=== PATIENT | male | born 1955 | race Caucasian/White ===

== ENCOUNTER 2016-08-16 09:04 | Outpatient (CLI) | payer BC ==
[~2016-08-16] VITALS: Ht 193 cm; Wt 119.1 kg
--- NOTE | ~2016-08-16 | HEMODYNAMI ---
PATIENT:SHERICE MO MEDICAL RECORD: [id number] : 57 LOCATION:D.CAT ADMISSION DATE: 08/16/16 Generatedon:08/16/201613:22 Patient name: SHERICE MO Patient #: [id number] SSN: DO B: 1955 Date of study: 08/16/2016 Page: Of Hemodynamic Procedure Report Patient Data Patient Demographics Procedure consent was obtained First Name: SHERICE Gender: Male Last Name: CHELY : 1955 [facility] Initial: ANNA Age: 60 year(s) Patient #: [id number] Race: Additional ID: [id number] Contact details Address: [facility] [address] State: [place] City: [place] Zip code: [address] Past Medical History Allergies: No known allergies Admission Admission Data Admission Date: 08/16/2016 Admission Time: 9:04 Lab Results Lab Result Date: 08/16/2016 Lab Result Time: 0:00 Biochemistry Name Units Result Min Max Creatinine mg/dl 0.9 --(-*--)-- 0.6 1.3 CBC Name Units Result Min Max Hemoglobin g/dl 13.9 --(*---)-- 13.5 17.5 Procedure Procedure Types Cath Procedure Diagnostic Procedure [facility] w/Coronaries Miscellaneous Procedures Moderate Sedation up to 15 minutes Procedure Description Procedure Date Procedure Date: 08/16/2016 Procedure Start Time: 13:11 Procedure End Time: 13:21 Procedure Staff Name Function James Thurman MD Performing Physician Ignacio Sullivan RT Scrub Thiago Carter RN Nurse Marlin Huggins RT Monitor Procedure Data Cath Procedure Fluoroscopy Diagnostic fluoroscopy Total fluoroscopy Time: 0.9 time: 0.9 min min Diagnostic fluoroscopy Total fluoroscopy dose: dose: 258.5 mGy 258.5 mGy Contrast Material Contrast Material Type Amount (ml) Isovue 300 63 Entry Location Entry Primary Successful Side Size Upsize Upsize Entry Closure Succes sful Closure Location (Fr) 1 (Fr) 2 (Fr) Remarks Device Remarks Femoral Right 5 Fr Exoseal artery Estimated blood loss: 5 ml Diagnostic catheters Device Type Used For End Catheter Placement Cordis 5Fr Pigtail LV Angiography Catheter (MP) Cordis 5Fr JL 4.0 Left Coronary Catheter (MP) Angiography Cordis 5Fr 3DRC Catheter Right Coronary (MP) Angiography Procedure Complications No complications Procedure Medications Medication Administration Route Dosage Oxygen NC 2 l/min Heparin Flush Bag added to field 2 bags (1000units/500ml NS) 0.9% NaCl I.V. 100 ml/hr Fentanyl I.V. 50 mcg Versed I.V. 1 mg Fentanyl I.V. 50 mcg Versed I.V. 1 mg Fentanyl I.V. 50 mcg Fentanyl I.V. 50 mcg Hemodynamics Rest HGB: 13.9 (g/dl) Heart Rate: 60 (bpm) Snapshots Pre Cath Intra NCS Post Cath Vital Signs Time Heart Resp SPO2 NIBP (mmHg) Rhythm Pain Sedation Rate (ipm) (%) Status Level (bpm) 12:44:56 60 19 99 130/77(112) NSR 0 (11) 10(A) , No pain 12:49:15 60 17 99 127/80(105) NSR 0 (11) 10(A) , No pain 12:53:33 60 18 97 122/74(101) NSR 0 (11) 10(A) , No pain 12:57:49 61 17 96 121/74(101) NSR 0 (11) 10(A) , No pain 13:02:05 62 18 98 120/76(99) NSR 0 (11) 10(A) , No pain 13:06:23 62 18 98 117/71(98) NSR 0 (11) 10(A) , No pain 13:10:39 63 19 95 119/74(104) NSR 0 (11) 9(A) , No pain 13:14:53 67 19 94 119/77(103) NSR 0 (11) 9(A) , No pain 13:18:22 69 19 96 117/69(96) NSR 0 (11) 9(A) , No pain Medications Time Medication Route Dose Verified Delivered Reason Notes Effec tiveness by by 12:44:36 Oxygen NC 2 Thiago Das used for l/min Raul Carter audience development manager RN 12:44:59 Heparin Flush added 2 Thiago Thiago used for Bag to bags Raul Carter RN procedure (1000units/500ml field RN NS) 12:45:14 0.9% NaCl I.V. 100 Thiago Kebedey Per ml/hr Raul Carter RN physician RN 13:05:55 Fentanyl I.V. 50 Thiago Thiago for [facility] [place] Raul Carter RN sedation RN 13:06:02 Versed I.V. 1 mg Thiago Thiago for Raul Carter RN sedation RN 13:09:15 Fentanyl I.V. 50 Thiago Thiago for [facility] [place] Raul Carter RN sedation RN 13:09:20 Versed I.V. 1 mg Thiago Thiago for Raul Carter RN sedation RN 13:12:59 Fentanyl I.V. 50 Thiago Thiago for [facility] [place] Raul Carter RN sedation RN 13:14:22 Fentanyl I.V. 50 Thiago Thiago for [facility] [place] Raul Carter RN sedation supercharge repair supervisor Log Time Note 12:16:52 Diagnostic Cath Status : Elective 12:17:17 Time tracking: Regular hours 12:17:21 Plan of Care:Hemodynamics will remain stable., Cardiac rhythm will remain stable., Comfort level will be maintained., Respiratory function will remain adequate., Patient/ family verbilizes understanding of procedure., Procedure tolerated without complication., Recovers from procedure without complications.. 12:25:52 Thiago Carter RN sent for patient. Start room use. 12:36:22 Patient received from Pre/Post Procedure Room to [facility] 3 Alert and oriented. Tansferred to table in Supine position. 12:36:23 Warm blankets applied, and flores hugger turned on for patient comfort. 12:36:23 Correct patient and procedure confirmed by team. 12:36:25 Signed procedure consent form obtained from patient. 12:36:26 ECG and BP/O2 sat monitors applied to patient. 12:43:49 Vital chart was started 12:43:52 Rhythm: sinus rhythm 12:43:55 Full Disclosure recording started 12:44:05 H&P Date Dictated: 08/14/2016 Within 30 days and on chart., H&P Addendum completed by physician on day of procedure. (MUST COMPLETE FOR ALL OUTPATIENTS). 12:44:06 Pre-procedure instructions explained to patient. 12:44:07 Pre-op teaching completed and patient verbalized understanding. 12:44:08 Family in waiting room. 12:44:10 Patient NPO since Midnight. 12:44:16 Patient allergic to No known allergies 12:44:18 Is the patient allergic to Iodine/contrast media? No. 12:44:20 Is patient on blood thinner?No 12:44:23 Patient diabetic? Yes. 12:44:36 Oxygen 2 l/min NC was given by Thiago Carter RN; used for procedure; 12:44:59 Heparin Flush Bag (1000units/500ml NS) 2 bags added to field was given by Thiago Carter RN; used for procedure; 12:45:14 0.9% NaCl 100 ml/hr I.V. was given by Thiago Carter RN; Per physician; 12:45:15 If diabetic: On Metformin? No 12:45:22 ACC The patient was administered the following blood thiners within the last 24 hours: ACCPlavix 12:45:26 Previous problem with sedation/anesthesia? No ? 12:45:27 Snore? Yes 12:45:29 Sleep apnea? No 12:45:30 Deviated septum? No 12:45:31 Opens mouth fully? Yes 12:45:31 Sticks out tongue? Yes 12:45:35 Airway obstruction? No ? 12:45:37 Dentures? No ? 12:45:39 Pre procedure: right dorsailis pedis pulse 2+ Normal; easily identifiable; not easily obliterated 12:45:42 Patient pain scale 0/10 ?. 12:45:47 IV patent on arrival in left hand with 0.9% NaCl at [facility]. 12:46:13 Lab Result : Creatinine 0.9 mg/dl 12:46:13 Lab Result : Hemoglobin 13.9 g/dl 12:46:18 Lab results completed and on chart. 12:46:21 Right groin area was prepped with chlora-prep and draped in sterile fashion 12:46:29 Alarms reviewed by R. N. 12:46:29 Sharps counted by scrub and verified by R.N. 12:50:55 Baseline sample Acquired. 12:58:08 Zero performed for pressure channel P1 12:58:12 Zero performed for pressure channel P1 13:03:02 Final Timeout: patient, procedure, and site verified with staff and physician. All members of the team are in agreement. 13:03:09 Right groin site verified by team. 13:03:13 Physical assessment completed. ASA score P 2 - A patient with mild systemic disease as per James Thurman MD. 13:03:16 Sedation plan: IV Moderate Sedation Versed, Fentanyl 13:05:55 Fentanyl 50 mcg I.V. was given by Thiago Carter RN; for sedation; 13:06:02 Versed 1 mg I.V. was given by Thiago Carter RN; for sedation; 13:06:08 Use device set Femoral Dx 13:06:09 Acist Syringe opened to sterile field. 13:06:11 Bag Decanter opened to sterile field. 13:06:11 Medline Cath Pack opened to sterile field. 13:06:12 Terumo 5Fr Stanley Sheath opened to sterile field. 13:06:12 St Jens 260cm J .035 wire opened to sterile field. 13:06:13 Acist Hand Control opened to sterile field. 13:06:14 Acist Manifold opened to sterile field. 13:06:14 Diagnostic Infinity 5Fr Multipack catheter opened to sterile field. 13:06:15 Tegaderm 4 x 4 opened to sterile field. 13:09:15 Fentanyl 50 mcg I.V. was given by Thiago Carter RN; for sedation; 13:09:20 Versed 1 mg I.V. was given by Thiago Carter RN; for sedation; 13:11:15 Procedure started. 13:11:18 Local anesthetic to right femoral artery with Lidocaine 2% by James Thurman MD.INITIAL ACCESS ONLY 13:11:54 A 5 Fr sheath was inserted into the Right Femoral artery 13:11:59 A Cordis 5Fr Pigtail Catheter (MP) was advanced over the wire and used for LV Angiography. 13:12:30 LV gram done using CORREA 13:12:34 EF : 50 % 13:12:39 Injector settings: Ml/sec: 10, Volume: 20, 13:12:40 Catheter removed. 13:12:45 A Cordis 5Fr JL 4.0 Catheter (MP) was advanced over the wire and used for Left Coronary Angiography. 13:12:59 Fentanyl 50 mcg I.V. was given by Thiago Carter RN; for sedation; 13:14:05 Catheter removed. 13:14:10 A Cordis 5Fr 3DRC Catheter (MP) was advanced over the wire and used for Right Coronary Angiography. 13:14:22 Fentanyl 50 mcg I.V. was given by Thiago Carter RN; for sedation; 13:14:46 Catheter removed. 13:14:58 Cordis 5Fr Exoseal opened to sterile field. 13:15:10 Sheath removed intact; hemostasis achieved with Exoseal to the Right Femoral artery. 13:15:12 Procedure ended.(Physican Out) 13:15:24 Fluoroscopy time 00.90 minutes. 13:15:31 Fluoroscopy dose: 258.5 mGy 13:15:31 Flurop Dose total: 258.5 13:15:36 Contrast amount:Isovue 300 63ml. 13:15:37 Sharps counted by scrub and verified by R.N. 13:15:38 Insertion/operative site no bleeding no hematoma. 13:15:41 Post-op/insertion site Right Femoral artery dressed using a 4 x 4 and Tegaderm. 13:15:44 Post right femoral artery:stable, clean and dry 13:15:57 Post Procedure Pulses reassessed and unchanged 13:16:00 Post-procedure physical assessment completed. ASA score P 2 - A patient with mild systemic disease as per James Thurman MD. 13:16:03 Post procedure rhythm: unchanged. 13:16:06 Estimated blood loss: 5 ml 13:16:07 Post procedure instruction explained to patient.Patient verbalizes understanding. 13:16:08 Patient needs reinforcement of post procedure teaching. 13:16:14 Procedure type changed to Cath procedure, Diagnostic procedure, LHC, LHC w/Coronaries, Miscellaneous Procedures, Moderate Sedation up to 15 minutes 13:16:19 Procedure Complication : No complications 13:16:21 See physician's report for complete and final results. 13:16:50 Procedure and supply charges have been captured, reviewed, submitted and are correct. 13:21:33 Vital chart was stopped 13:21:35 Report given to Pre/Post Procedure Room. 13:21:38 Patient transfered to Pre/Post Procedure Room with Bed. 13:21:43 Procedure ended. 13:21:43 Full Disclosure recording stopped 13:21:46 End room use (Document Last) Device Usage Item Name Manufacture Quantity Catalog Hospital Part Current Minimal Lo t# / Number Charge Number Stock Stock Serial# Code Acist Acist 1 [id number] [id number] [id number] 20 Syringe [employer] Inc Bag Microtek 1 2002S 627108 20246 910109 5 Decanter [employer] Inc. Medline Cardinal 1 [id number] 699461 94410 677069 5 Cath Pack Health Terumo 5Fr Terumo 1 [id number] 874322 878271 839691 [address] St Jens 1 364257 699759 055102 501498 30 260cm J .035 wire Acist Hand Acist 1 49876 245469 726792 387757 5 Control [employer] Inc Acist Acist 1 29564 027408 318212 534397 5 Manifold Medical [employer] Inc Diagnostic Cardinal 1 [id number] 078258 09952 332339 30 Infinity Health 5Fr Multipack catheter Tegaderm 4 3M 1 1626W 339788 231230 379199 5 x 4 Cordis 5Fr Cardinal 1 [id number] 5 Pigtail Health Catheter (MP) Cordis 5Fr Cardinal 1 813018 5 JL 4.0 Health Catheter (MP) Cordis 5Fr Cardinal 1 [id number] 5 3DRC Health Catheter (MP) Cordis 5Fr Cardinal 1 EX500 073266 509906 163986 10 [facility] Health Signature Audit [place] Stage Time Signature Unsigned Intra-Procedure 08/16/2016 Marlin 1:21:56 PM Counts RT(R) Signatures Monitor : Marlin Signature : Counts RT Date : Time : [id number] [place] [address]
[~2016-08-16 09:04] MED LIST: ALLEGRA-D1 TAB.SR1 PO; APIDRA100 U/M1; ECOTRIN325 MG PO; INSULIN PUMP; JARDIANCE PO; LOPRESSOR25 MG PO; OMNICEF300 MG PO; PLAVIX75 MG PO; PLETAL50 MG PO; PRAVACHOL20 MG PO; ULTRACET TABLET1 TAB PO
[2016-08-16] MEDS ORDERED: BAYER CHEWABLE81 MG PO (09:51)
[2016-08-16] MEDS ORDERED: PRAVACHOL20 MG PO (10:00)
[2016-08-16 10:01] VITALS: BP 120/72; Ht 193 cm; Wt 119.1 kg
[2016-08-16 10:01] LABS: BASOPHILS 0.4 % (0.0-2.0); EOSINOPHILS 3.4 % (0-7); HEMATOCRIT 41.3 % (42.0-54.0); HEMOGLOBIN 13.9 g/dL (13.5-17.5); IMMATURE GRANULOCYTES 0.2 % (0-5); LYMPHOCYTES 24.7 % (15-50); MCH 29.5 pg (26.0-34.0); MCHC 33.7 g/dL (31.0-37.0); MCV 87.7 fL (80.0-100.0); MEAN PLATELET VOLUME 10.5 fL (7.4-10.4); MONOCYTES 7.9 % (2-11); NEUTROPHILS 63.4 % (40-80); PLATELET COUNT 256 10x3/uL (130-400); RBC 4.71 10x6/uL (4.20-6.10); RDW 13.1 % (11.5-14.5); WBC 5.3 10x3/uL (4.8-10.8)
[2016-08-16 10:22] LABS: CALC OSMOLALITY 281 mosm/kg (275-300); CALCIUM 8.6 mg/dL (8.5-10.1); CARBON DIOXIDE 26.2 mmol/L (21.0-32.0); CHLORIDE - SERUM 101 mmol/L (98-107); CREATININE - SERUM 0.9 mg/dL (0.6-1.3); POTASSIUM - SERUM 4.3 mmol/L (3.5-5.1); SODIUM 136 mmol/L (136-145); UREA NITROGEN 18 mg/dL (7-18); eGFR NON AFRICAN AMERICAN > 90 mL/min (90-120)
[2016-08-16 10:24] LABS: GLUCOSE 241 mg/dL (74-106)
--- NOTE | 2016-08-16 14:03 | NUR ---
1345 LYING FLAT IN BED, EYES CLOSED. 2L NC INPLACE WHILE SLEEPING. NSR RATE 73 W NO C/O CHEST PAIN. PULSES PALP X 4. R GROIN 5F EXOSEAL C/D/I WITH NO HEMATOMA OR BLEEDING. FAMILY AT BEDSIDE.
--- NOTE | 2016-08-16 14:11 | NUR ---
EATING SANDWICH WITH ASSIST FROM AT BEDSIDE. R GROIN CONTINUES TO BE C/D/I.
--- NOTE | 2016-08-16 15:10 | NUR ---
REPOSITIONED TO SITTING WITH HOB UP 30 DEGREES PIV REMOVED FROM LEFT ARM WITH DRESSING APPLIED. 5 FR EXOSEAL R/GROIN CDI NO BLEEDING NO HEMATOMA NOTED. CHEST PAIN IS DENIED PATIENT UP TO GET DRESSED FOR DISCHARGE HOME
--- NOTE | 2016-08-16 15:32 | NUR ---
PIV REMOVED WITH BANDAID APPLIED. SITTING UP IN BED. UP TO BEDSIDE TO DRESS. D/C INSTRUCTIONS DISCUSSED WITH PATIENT AND FAMILY AT BEDSIDE. WHEELED OUT VIA WHEELCHAIR.
--- NOTE | 2016-08-28 10:08 | OP ---
PATIENT NAME: SHERICE MO MEDICAL RECORD: [id number] :57 LOCATION:D.CAT ADMISSION DATE: SURGEON: GINGER CALLEJAS MD DATE OF OPERATION: 08/16/2016 PROCEDURES: 1. Left heart catheterization. 2. Selective coronary angiography. 3. Left ventriculogram. INDICATION: Chest pain compatible with angina. PROCEDURE IN DETAIL: After informed consent was obtained and after detailed explanation of risks, benefits as well as alternative therapies, the patient elected to proceed with angiogram and heart catheterization. The right femoral area was prepped and draped in normal sterile fashion. The right femoral artery was cannulated via modified Seldinger technique with placement of 5-German sheath. All catheters exchanged through this sheath. FINDINGS: The left ventriculogram was performed in standard 30-degree CORREA view, reveals good cardiac wall motion throughout all segments. Overall ejection fraction 50%. SELECTIVE CORONARY ANGIOGRAPHY: 1. Left main is with no significant angiographic disease. 2. Left anterior descending has previously placed stent that is widely patent with no significant restenosis. No disease elsewhere throughout the LAD or its branches. 3. The left circumflex has moderate irregularities, but no flow-limiting stenosis. 4. The right coronary has previously placed stent with no significant restenosis. No disease elsewise throughout the RCA or its branches. OVERALL IMPRESSION: No significant restenosis of any of the previously placed stents. No disease elsewise. Normal LV function. Chest pain is noncardiac in etiology. TRANSINT:[id number] Voice Confirmation ID: [id number] DOCUMENT ID: [id number] GINGER CALLEJAS MD at 1008 CC: [id number] DICTATION DATE: 08/16/16 1320 NUT CRACKER: 08/16/16 1751 DEP CLI 08/16/16 [facility] [address] [id number]
== END 2016-08-16 15:33 | disposition home or self-care (01) ==
LOC: D.CATH 09:04
PROVIDERS: Internal Medicine Interventional Cardiology
DX: R07.89 Other chest pain (principal); I25.10 Atherosclerotic heart disease of native coronary artery without angina pectoris; Z95.5 Presence of coronary angioplasty implant and graft

== ENCOUNTER → 2020-03-02 10:49 | Outpatient (CLI) | payer BC ==
[2016-08-16 10:01] VITALS: BMI 31.9
[~2020-03-02 10:49] MED LIST changes: +BAYER CHEWABLE81 MG PO
== END | disposition home or self-care (01) ==
LOC: D.MRI 10:49
PROVIDERS: ATTEND Family Medicine
DX: M54.5 Low back pain (principal)